=== PATIENT | male | born 1945 | race Caucasian/White ===

== ENCOUNTER → 2018-05-26 05:57 | Outpatient (CLI) | payer OTHER, SELFPAY ==
[2016-09-16 12:46] VITALS: BMI 29.5
--- NOTE | 2018-05-26 06:01 | ECHOD_ITS ---
Reason For Study: DYSPNEA/SOB Procedure This was a 2D Doppler, Color Flow transthoracic echocardiogram. The exam was of adequate technical quality. Exam performed in department. Left Ventricle Normal LV size. Mild concentric left ventricular hypertrophy. Sigmoid septum. Apical false tendon noted. Left ventricular systolic function is normal. The estimated ejection fraction is 70 %. No regional wall motion abnormalities noted. Right Ventricle Normal RV size. Normal systolic function. Atria Normal left atrium. Normal right atrium. No doppler evidence for ASD. Mitral Valve There is no mitral annular calcification. Normal mitral valve. Moderate (2+) eccentric mitral valve insufficiency. Tricuspid Valve Normal tricuspid valve. Mild tricuspid valve insufficiency. Right ventricular systolic pressure estimated to be 40 mmHg. Aortic Valve Trisinus/trileaflet aortic valve. Normal aortic valve. Trivial aortic valve insufficiency. Pulmonic Valve The pulmonic valve is not well visualized. Great Vessels Mildly dilated ascending aorta. Pericardium/Pleural No pericardial effusion. MMode/2D Measurements & Calculations LVIDd: 4.1 cm IVSd: 1.4 cm Ao root diam: 4.1 cm LVIDs: 2.4 cm LVPWd: 1.3 cm LA dimension: 3.7 cm RVDd: 3.0 cm FS: 40.1 % LAV(MOD-bp): 56.4 ml LVAd ap4: 37.8 cm2 SV(MOD-sp4): 84.6 ml LAV(MOD-bp) Indexed: 27.7 ml/m2 EDV(MOD-sp4): 127.0 ml LAV(MOD-sp2): 67.1 ml EDV(sp4-el): 131.8 ml LAV(MOD-sp4): 47.0 ml LVAs ap4: 18.5 cm2 ESV(MOD-sp4): 42.4 ml ESV(sp4-el): 41.6 ml EF(MOD-sp4): 66.6 % EF(sp4-el): 68.4 % SV(sp4-el): 90.2 ml LA A4 area: 17.7 cm2 RA A4 area: 16.3 cm2 Time Measurements MV dec time: 0.19 sec Doppler Measurements & Calculations MV E max cosme: 126.1 cm/sec Lat Peak E' Cosme: 10.2 cm/sec Med Peak E' Cosme: 6.9 cm/sec MV A max cosme: 90.4 cm/sec E/E' lat: 12.3 E/E' med: 18.2 MV E/A: 1.4 MV V2 max: 128.8 cm/sec Ao V2 max: 122.9 cm/sec LV V1 max: 90.5 cm/sec MV max P.6 mmHg Ao max P.1 mmHg LV V1 max P.3 mmHg MV V2 mean: 73.5 cm/sec MV mean P.5 mmHg MV V2 VTI: 36.0 cm PA V2 max: 95.1 cm/sec TR max cosme: 302.8 cm/sec TR max P.8 mmHg Interpretation Summary Left ventricular systolic function is normal. The estimated ejection fraction is 70 %. Mild concentric left ventricular hypertrophy. Sigmoid septum. Apical false tendon noted. Moderate (2+) eccentric mitral valve insufficiency. Mild tricuspid valve insufficiency. Trivial aortic valve insufficiency. Mildly dilated ascending aorta. Right ventricular systolic pressure estimated to be 40 mmHg. Transmitral diastolic flow velocities suggest diastolic dysfunction (pseudonormal pattern). Ordering Physician: Linda Austin/Henok Hill Referring Physician: CECILIA PENA Performed By: Tri Sheehan RDCS
--- NOTE | 2018-05-26 08:52 | STRESSREP ---
Stress Test Report Date: 05/26/2018 Procedure: Exercise tolerance test/imaging study Indications: Shortness of breath/dyspnea; CAD; non-ST segment elevation MT; PCI Consent: Per the patient Procedure: The patient exercised on a Jonah protocol for 7 minutes completing Stage II and 1 minute of Stage III achieving a peak heart rate of 133 bpm (89 % predicted maximal heart rate) with a peak blood pressure 198/100 mmHg and a peak MET capacity of 8 METs. The baseline ECG demonstrated sinus bradycardia. The peak exercise ECG demonstrated no obvious ECG changes. There was a rare PAC during recovery. The functional capacity was considered good. There was no complaint of chest discomfort during exercise or recovery. The examination was discontinued secondary to dyspnea. Impression: 1. Technically adequate (percent predicted maximal heart rate greater than 85%) exercise tolerance test 2. Peak exercise ECG with no obvious ECG changes 3. There was a rare PAC during recovery. 4. Nuclear images pending Myocardial perfusion imaging study: Technique: The patient was injected with 11.4 mCi of technetium 99m Cardiolite and subsequently rest SPECT Cardiolite nuclear imaging was obtained in the horizontal long, vertical long, and short axis views. The patient exercised on a Jonah protocol for 7 minutes completing Stage II and 1 minute of Stage III achieving a peak heart rate of 133 bpm (89 % predicted maximal heart rate) with a peak blood pressure 198/100 mmHg and a peak MET capacity of 8 METs. The patient was injected with 84.1 mCi of technetium 99m Cardiolite and subsequently stress SPECT Cardiolite nuclear imaging was obtained in the horizontal long, vertical long, and short axis views. A gated Cardiolite study at peak stress was obtained. Interpretation: Rest and stress SPECT Cardiolite nuclear imaging status post realignment, normalization, and attenuation correction, demonstrates the appearance of relative uniform tracer uptake and myocardial perfusion appearing within normal limits. There is end systolic thickening and brightening. The gated Cardiolite study demonstrates myocardial thickening and inward wall motion. The reported LVEF is 70 %. Impression: 1. Rest and stress SPECT Cardiolite nuclear imaging demonstrate relative uniform tracer uptake and myocardial perfusion appearing within normal limits. 2. The gated Cardiolite study reports an LVEF of 70 %. This note was generated with [employer] software. It may contain incorrect words, spelling, and punctuation that were not noted in checking the note before signing.
--- NOTE | 2018-05-26 08:55 | STRESSREP_ITS ---
Stress Test Report Date: 05/26/2018 Procedure: Exercise tolerance test/imaging study Indications: Shortness of breath/dyspnea; CAD; non-ST segment elevation NM; PCI Consent: Per the patient Procedure: The patient exercised on a Jonah protocol for 7 minutes completing Stage II and 1 minute of Stage III achieving a peak heart rate of 133 bpm (89 % predicted maximal heart rate) with a peak blood pressure 198/100 mmHg and a peak MET capacity of 8 METs. The baseline ECG demonstrated sinus bradycardia. The peak exercise ECG demonstrated no obvious ECG changes. There was a rare PAC during recovery. The functional capacity was considered good. There was no complaint of chest discomfort during exercise or recovery. The examination was discontinued secondary to dyspnea. Impression: 1. Technically adequate (percent predicted maximal heart rate greater than 85% ) exercise tolerance test 2. Peak exercise ECG with no obvious ECG changes 3. There was a rare PAC during recovery. 4. Nuclear images pending Myocardial perfusion imaging study: Technique: The patient was injected with 11.4 mCi of technetium 99m Cardiolite and subsequently rest SPECT Cardiolite nuclear imaging was obtained in the horizontal long, vertical long, and short axis views. The patient exercised on a Jonah protocol for 7 minutes completing Stage II and 1 minute of Stage III achieving a peak heart rate of 133 bpm (89 % predicted maximal heart rate) with a peak blood pressure 198/100 mmHg and a peak MET capacity of 8 METs. The patient was injected with 84.1 mCi of technetium 99m Cardiolite and subsequently stress SPECT Cardiolite nuclear imaging was obtained in the horizontal long, vertical long, and short axis views. A gated Cardiolite study at peak stress was obtained. Interpretation: Rest and stress SPECT Cardiolite nuclear imaging status post realignment, normalization, and attenuation correction, demonstrates the appearance of relative uniform tracer uptake and myocardial perfusion appearing within normal limits. There is end systolic thickening and brightening. The gated Cardiolite study demonstrates myocardial thickening and inward wall motion. The reported LVEF is 70 %. Impression: 1. Rest and stress SPECT Cardiolite nuclear imaging demonstrate relative uniform tracer uptake and myocardial perfusion appearing within normal limits. 2. The gated Cardiolite study reports an LVEF of 70 %. This note was generated with [employer] software. It may contain incorrect words, spelling, and punctuation that were not noted in checking the note before signing.
== END ==
PROVIDERS: Family Provider Family Medicine; PCP Family Medicine; Visit Provider Physician Assistant Medical
DX: I25.10 Atherosclerotic heart disease of native coronary artery without angina pectoris (principal); R06.00 Dyspnea, unspecified
CPT/HCPCS: 78452; 93017; 93306; A9500; A4216

== ENCOUNTER → 2018-06-02 13:06 | Outpatient (CLI) | payer OTHER, SELFPAY ==
[2016-09-16 12:46] VITALS: BMI 29.5
--- NOTE | 2018-06-02 13:08 | CT_ITS ---
STUDY: CT CHEST WITHOUT CONTRAST REASON FOR EXAM: Male, 72 years old. Thoracic aortic aneurysm. No RADIATION DOSAGE (If Supplied By Facility): CTDIvol = ( 13.83 ) mGy, DLP = ( 660.91 ) mGycm TECHNIQUE: Transaxial imaging was performed without the administration of intravenous contrast material. Individualized dose optimization techniques were used for this CT. COMPARISON: None. FINDINGS: There is hyperinflation of the lungs consistent with chronic obstructive lung disease (COPD). No infiltrates or effusions. There is no demonstrated pleural abnormality. Normal heart and pericardium. There are calcifications of the coronary arteries. Normal mediastinum. Normal hilar regions. Normal unenhanced pulmonary arteries. There is atherosclerotic tortuosity of the aortic arch and descending thoracic aorta. There is ectasia of the SMA aorta measuring as much as 4.2 cm in diameter. No evidence for dissection. There are multi-level degenerative changes of the thoracic spine. Limited views the upper abdomen show no gross acute abnormality. There is a 3.5 cm complex cyst of the upper pole of the right kidney which has been previously investigated and is grossly unchanged. CT/Chest WITH Contrast IMPRESSION: There are findings consistent with COPD. Ectasia of the ascending aorta with greatest cross-sectional dimension of 4.2 cm. Note that no prior comparison studies are provided. There is no evidence of acute chest disease. Electronically Signed: Jarrod Hernandez MD at 22:23 EDT , Service support ,
--- NOTE | 2018-06-02 13:33 | CT_ITS ---
STUDY: CT ABDOMEN AND PELVIS WITHOUT CONTRAST REASON FOR EXAM: Male, 72 years old. Follow-up right renal cyst. RADIATION DOSAGE (If Supplied By Facility): CTDIvol = ( 13.83 ) mGy, DLP = ( 660.91 ) mGycm TECHNIQUE: Transaxial images were obtained from the dome of the diaphragm to the symphysis pubis without oral contrast, and without intravenous contrast. Sagittal and coronal images were reconstructed. Individualized dose optimization techniques were used for this CT. COMPARISON: 08/09/2016. FINDINGS: See separate report for CT of the chest. Complex mixed density cyst of the upper pole of the left kidney is seen, but very limited evaluation because contrast was not given. Therefore although it can be shown to measure approximately same size as seen previously at approximately 3.3 cm, evaluation must be considered markedly inadequate without IV contrast. No other changes of the kidneys, which show extreme amount of parapelvic cysts, right worse than left but stable. The parapelvic cysts make it very difficult to exclude hydronephrosis although none is definitely seen. No definite stones on the right. On the left, there is a 2 mm upper pole stone. Normal liver. The gallbladder is contracted. Normal spleen. Normal pancreas. Normal bilateral adrenal glands. Evaluation of the GI tract is limited by absence of oral contrast. Cannot exclude stomach wall thickening. No dilated loops of bowel or evidence for obstruction. Cannot exclude segmental thickening of the garcia of the small or large bowel. Cannot exclude enteritis or colitis. Moderate diffuse fecal retention. Appendix within normal limits. Tortuous aorta with small amounts of plaque. No evidence for aneurysm. Normal inferior vena cava. Normal retroperitoneum. Normal urinary bladder. There is enlargement of the prostate gland. Surgical changes of previous bilateral inguinal hernia repairs. Currently no definite hernia is seen. There are diffuse degenerative changes of the visualized lumbar spine. CT/Abdomen/Pelvis without Cont IMPRESSION: Although a complex cyst of the upper pole of the right kidney is grossly unchanged in size, evaluation for renal masses in general is extremely limited with IV contrast was not given, and very little other comment can be made. Tiny nonobstructing left renal stone. Prominent bilateral parapelvic cysts. Electronically Signed: Jarrod Hernandez MD at 22:29 EDT , Service support ,
[2018-06-02 15:16] LABS: CREATININE FINGERSTICK 0.8 mg/dL (0.70-1.30); EGFR FINGERSTICK > 60.0000 mL/min (>60)
== END ==
PROVIDERS: Family Provider Family Medicine; PCP Family Medicine; Visit Provider Internal Medicine Cardiovascular Disease
DX: I77.810 Thoracic aortic ectasia (principal); Q61.01 Congenital single renal cyst
CPT/HCPCS: 71260; 74176; Q9967

== ENCOUNTER → 2020-05-23 | Outpatient (CLI) | payer OTHER, SELFPAY ==
[2016-09-16 12:46] VITALS: BMI 29.5
[2019-12-17 10:05] VITALS: BMI 30.4
--- NOTE | 2020-05-23 07:26 | ECHOD_ITS ---
Reason For Study: CAD Procedure This was a 2D Doppler, Color Flow transthoracic echocardiogram. The exam was of adequate technical quality. Exam performed in department. Left Ventricle Normal LV size. Sigmoid septum. Left ventricular systolic function is normal. The estimated ejection fraction is 65 %. Diastolic function is indeterminate. No regional wall motion abnormalities noted. Right Ventricle Normal RV size. Normal systolic function. Atria Normal left atrium. Normal right atrium. No doppler evidence for ASD. Mitral Valve There is no mitral annular calcification. Normal mitral valve. Moderate (2+) eccentric mitral valve insufficiency. Tricuspid Valve Normal tricuspid valve. Trivial tricuspid valve insufficiency. Right ventricular systolic pressure estimated to be 28 mmHg. Aortic Valve Trisinus/trileaflet aortic valve. Mild diffuse aortic valve thickening. Mild focal aortic valve calcification. Aortic sclerosis, no stenosis. Trivial aortic valve insufficiency. Pulmonic Valve The pulmonic valve is not well visualized. Trivial pulmonic valve insufficiency. Great Vessels Moderately dilated aortic root. Pericardium/Pleural No pericardial effusion. MMode/2D Measurements & Calculations LVIDd: 5.2 cm IVSd: 0.98 cm LVOT diam: 2.0 cm LVIDs: 3.5 cm LVPWd: 1.1 cm LVOT area: 3.1 cm2 RVDd: 3.6 cm FS: 33.4 % Ao root diam: 4.6 cm LAV(MOD-bp): 46.3 ml LA A4 area: 14.1 cm2 LAV(MOD-bp) Indexed: 22.7 ml/m2 LAV(MOD-sp2): 51.0 ml LAV(MOD-sp4): 36.1 ml LA dimension(2D): 4.3 cm RA A4 area: 10.3 cm2 Time Measurements MV dec time: 0.22 sec Doppler Measurements & Calculations MV E max cosme: 56.7 cm/sec Lat Peak E' Cosme: 5.5 cm/sec Med Peak E' Cosme: 3.4 cm/sec MV A max cosme: 86.4 cm/sec E/E' lat: 10.3 E/E' med: 16.6 MV E/A: 0.66 MV V2 max: 98.6 cm/sec Ao V2 max: 128.6 cm/sec AI max cosme: 388.6 cm/sec MV max P.9 mmHg Ao max P.6 mmHg AI max P.4 mmHg MV V2 mean: 45.8 cm/sec Ao V2 mean: 99.7 cm/sec AI dec slope: 124.7 cm/sec2 MV mean P.1 mmHg Ao mean P.2 mmHg AI P1/2t: 912.9 msec MV V2 VTI: 29.6 cm Ao V2 VTI: 25.3 cm MVA(VTI): 2.1 cm2 ORA(I,D): 2.4 cm2 ORA(V,D): 2.3 cm2 LV V1 max: 95.0 cm/sec SV(LVOT): 61.7 ml PA V2 max: 86.5 cm/sec LV V1 max P.6 mmHg LV V1 mean P.1 mmHg LV V1 mean: 68.5 cm/sec LV V1 VTI: 20.0 cm TR max cosme: 251.1 cm/sec MV P1/2t-pr_phl: 58.3 msec TR max P.2 mmHg Interpretation Summary Left ventricular systolic function is normal. The estimated ejection fraction is 65 %. Sigmoid septum. Moderate (2+) eccentric mitral valve insufficiency. Trivial tricuspid valve insufficiency. Aortic sclerosis, no stenosis. Trivial aortic valve insufficiency. Trivial pulmonic valve insufficiency. Moderately dilated aortic root. Right ventricular systolic pressure estimated to be 28 mmHg. Diastolic function is indeterminate. Ordering Physician: Henok Hill Referring Physician: CECILIA PENA Performed By: Keturah Barrientos, JHON, RVT
--- NOTE | 2020-05-23 07:26 | CT_ITS ---
STUDY: CT CHEST WITH CONTRAST REASON FOR EXAM: Male, 74 years old. ASCENDING AORTA DILATION YEARLY FOLLOW UP RADIATION DOSAGE (If Supplied By Facility): CTDIvol = ( 14.95 ) mGy, DLP = ( 586.25 ) mGycm TECHNIQUE: Transaxial imaging was performed following intravenous administration of IV 100mL Isovue-300. Individualized dose optimization techniques were used for this CT. COMPARISON: 06/02/2018 FINDINGS: The lungs are normal. There is no demonstrated pleural abnormality. Normal heart and pericardium. There are calcifications of the coronary arteries. Normal mediastinum. Normal hilar regions. Normal enhanced pulmonary arteries. Normal aorta arch and descending thoracic aorta. The ascending aorta measures 4.0 cm in diameter which is at the upper limits of normal. Normal osseous structures. No change of hydronephrosis or parapelvic cyst of the right kidney. CT/Chest WITH Contrast IMPRESSION: Normal enhanced CT Chest examination. Electronically Signed: Aiden Beck MD at 8:07 EDT Tel , Service support ,
[2020-05-23 07:46] LABS: EGFR FINGERSTICK > 60.0000 mL/min (>60)
== END | disposition home or self-care (01) ==
LOC: CVS 07:26
PROVIDERS: PCP Family Medicine; Referring Provider Internal Medicine Cardiovascular Disease; Visit Provider Internal Medicine Cardiovascular Disease
DX: I25.10 Atherosclerotic heart disease of native coronary artery without angina pectoris (principal); R06.09 Other forms of dyspnea; I34.0 Nonrheumatic mitral (valve) insufficiency; I77.810 Thoracic aortic ectasia; E78.00 Pure hypercholesterolemia, unspecified; I10 Essential (primary) hypertension; Z95.5 Presence of coronary angioplasty implant and graft
CPT/HCPCS: 71260; 93306; Q9967

== ENCOUNTER 2020-07-06 16:56 | Emergency (ER) | payer OTHER, SELFPAY ==
[2016-09-16 12:46] VITALS: BMI 29.5
[2020-05-26 10:20] VITALS: BMI 30.9
[2020-07-06 16:56] VITALS: BP 177/91; PULSE 67; RESP 18; TEMP 36.1; O2SAT 97; BMI 30.8
--- NOTE | 2020-07-06 17:02 | ED.RN ---
C-COLLAR AND GAUZE DRESSING APPLIED IN TRIAGE.
--- NOTE | 2020-07-06 17:44 | CT_ITS ---
STUDY: CT BRAIN WITHOUT CONTRAST REASON FOR EXAM: Male, 74 years old. FELL BACKWARDS AND HIT HEAD ON TRACTOR Wheel, laceration TO BACK OF Head, pt DENIES LOC -- HX:HTN,CVA,CAD RADIATION DOSAGE (If Supplied By Facility): CTDIvol = ( 44.99 ) mGy, DLP = ( 796.11 ) mGycm TECHNIQUE: Transaxial CT imaging of the brain was performed without administration of intravenous contrast material. Individualized dose optimization techniques were used for this CT. COMPARISON: No relevant priors. FINDINGS: There is mild subcutaneous fullness associated with subcutaneous air overlying the posterior calvarium consistent with recent trauma. Normal calvarium. There is mild cerebral atrophy with widening of the extra-axial spaces and ventricular dilatation. There are areas of decreased attenuation within the white matter tracts of the supratentorial brain, consistent with microvascular disease changes. Normal basal ganglia and thalami. Normal brainstem. There is mild cerebellar atrophy. There are peripheral calcifications of the visualized vertebral and internal carotid arteries. There is no intracranial hemorrhage. There are no findings of an acute ischemic infarction. Normal visualized paranasal sinuses. CT/Brain/Head without Contrast IMPRESSION: Chronic involutional changes of the brain. Small vessel ischemia. Atherosclerosis. Electronically Signed: Zulma Mckeon MD at 18:25 EDT Tel , Service support ,
--- NOTE | 2020-07-06 17:45 | CT_ITS ---
STUDY: CT CERVICAL SPINE WITHOUT CONTRAST REASON FOR EXAM: Male, 74 years old. FELL BACKWARDS AND HIT HEAD ON TRACTOR WHEEL,LACERATION TO BACK OF HEAD,PT DENIES LOC -- HX:HTN,CVA,CAD/acute traumatic neck injury. RADIATION DOSAGE (If Supplied By Facility): CTDIvol = ( 23.30 ) mGy, DLP = ( 426.10 ) mGycm TECHNIQUE: High resolution transaxial imaging was performed without contrast material. Sagittal and coronal images were reconstructed. Individualized dose optimization techniques were used for this CT. COMPARISON: None FINDINGS: Normal craniovertebral junction. Normal C1, C2 and odontoid alignment. Negative for odontoid fracture. There is reversal of the normal cervical lordosis. Negative for acute fracture of the cervical spine. C2-3: Mild degenerative disc narrowing. Bilateral facet arthrosis, right greater than left. Negative for central stenosis or substantial foraminal narrowing. C3-4: Mild disc narrowing. Bilateral facet arthrosis, left greater than right. Negative for central stenosis. Foraminal narrowing on the left. C4-5: Mild disc narrowing and uncovertebral arthrosis. Bilateral facet arthrosis, left greater than right. Foraminal narrowing on the left. Negative for central stenosis. C5-6: Advanced disc narrowing. Uncovertebral arthrosis. Negative for central stenosis. Mild bilateral foraminal narrowing, right greater than left. C6-7: Degenerative disc narrowing and uncovertebral arthrosis. Negative for central stenosis. Mild bilateral foraminal narrowing. C7-T1: Mild degenerative disc and joint changes without central stenosis or foraminal narrowing. Status post left thyroidectomy. Mild bilateral carotid artery calcifications. CT/Spine Cervical without Contras IMPRESSION: Reversal of the usual cervical lordosis with otherwise normal alignment. Negative for acute fracture of the cervical spine. Degenerative disc and joint changes as stated above. Status post left thyroidectomy. Mild bilateral carotid artery calcifications. Electronically Signed: Elizabet Wylie MD at 18:22 EDT , Service support ,
--- NOTE | 2020-07-06 17:48 | ED.DCSUM_ITS ---
- ER Visit Summary Date of Service: 07/06/20 Chief Complaint: Fall History of Present Illness: The patient is a 74 M who presents after a fall that occurred today. Patient slipped as he was getting onto a tractor. Patient fell backwards and hit his head on the tire rim of another tractor. Patient denies any loss of consciousness. Patient admits to some pain in his head, upper back, and upper chest. Patient describes it as dull. Patient states nothing makes it better or worse. Patient denies any paresthesias or weakness. Patient is unsure of his last tetanus. Physical Examination: Vital signs are stable. Patient is afebrile. Patient is in no acute distress. Skin is warm and dry. There is a 3.5 cm full-thickness linear laceration over the occipital part of the scalp. There is no bony crepitance or step-off. There is mild bleeding noted. Cranial nerves II throug h XII are intact. Strength is 5/5 bilateral in the upper and lower extremities. There are no sensory deficits noted. Neck is supple. There is some mild cervical paraspinal tenderness. There is no bony crepitance or step-off. Cervical collar is in place. Heart was regular rate and rhythm. Lungs are clear and equal bilaterally. Abdomen is soft and nontender. Test Results: CT scan of the cervical spine and CT scan of the brain were obtained. There is no acute abnormality. These were interpreted by the radiologist and reviewed by myself. Emergency Department Course and Treatment: The wound was cleaned and irrigated with copious amounts of normal saline. The wound was anesthetized 1% lidocaine with epinephrine locally. The wound was closed with 8 mingo. Patient tolerated procedure well. Bacitracin dressing was applied. Patient was instructed to follow-up with his primary care physician in 5 days for wound rec heck and suture removal. Patient understood and was agreeable with the plan. All questions were answered. Disposition: Discharge home Impression: 1. Scalp laceration 2. Closed head injury This note was generated with [email or web address] dictation software. It may contain incorrect words, spelling, and punctuation that were not noted in review of the chart prio r to signing ED Disposition - Plan for ED Patient: Disposition: Home or Assisted Living Diagnosis: Occipital scalp laceration, Closed head injury Instructions: ED Head Injury Adult, ED Laceration Scalp Sutures or [facility] Referrals: Cydney Lockett MD [Primary Care Provider] - 5 Days for suture removal
[2020-07-06] MEDS: Diphth,Pertuss(Acell),Tet Vac 0.5 ML Vial IM (18:10)
[2020-07-06 19:14] VITALS: BP 158/89; RESP 18; O2SAT 97
== END 2020-07-06 19:16 | disposition home or self-care (01) ==
PROVIDERS: Emergency Provider Emergency Medicine; PCP Family Medicine
DX: S01.01XA Laceration without foreign body of scalp, initial encounter (principal); I10 Essential (primary) hypertension; Z86.73 Personal history of transient ischemic attack (TIA), and cerebral infarction without residual deficits; Z79.899 Other long term (current) drug therapy; W26.8XXA Contact with other sharp object(s), not elsewhere classified, initial encounter; Y93.89 Activity, other specified; Y92.008 Other place in unspecified non-institutional (private) residence as the place of occurrence of the external cause; Y99.8 Other external cause status
CPT/HCPCS: 12002; 70450; 72125; 90471; 90715; 99282

== ENCOUNTER → 2020-07-31 10:12 | Outpatient (CLI) | payer OTHER, SELFPAY ==
[2016-09-16 12:46] VITALS: BMI 29.5
[2020-07-06 16:56] VITALS: BMI 30.8
[2020-07-31 12:22] LABS: PSA,Total - Annual Screen 1.95 ng/mL (0.00-4.00)
== END ==
PROVIDERS: PCP Family Medicine; Visit Provider Urology
DX: Z12.5 Encounter for screening for malignant neoplasm of prostate (principal)
CPT/HCPCS: 36415; 84153; G0103

== ENCOUNTER → 2023-05-26 | Outpatient (CLI) | payer OTHER, MEDICARE, SELFPAY ==
[2022-11-22 09:11] VITALS: BMI 29.5
--- NOTE | 2023-05-26 07:01 | CT_ITS ---
STUDY: CTA CHEST REASON FOR EXAM: Male, 77 years old. Ascending Aortic Aneurysm (known) RADIATION DOSAGE (If Supplied By Facility): CTDIvol = ( 19.63 ) mGy, DLP = ( 453.69 ) mGycm TECHNIQUE: The examination was performed with the intravenous administration of IV 100mL Isovue-370. Post-processing of the angiographic images was performed, with multiplanar reformation and 3D reconstruction. Individualized dose optimization techniques were used for this CT. COMPARISON: Comparison is made with the prior examination dated May 23, 2020. FINDINGS: Normal enhancement of the main pulmonary artery and right and left pulmonary arteries. Normal enhancement of the bilateral peripheral pulmonary arteries. There is no demonstrated pulmonary embolism. There is aneurysmal dilatation of the ascending aorta. The transverse diameter of the ascending aorta measures 51 mm''s. This previously measured 42.6 mm. Atherosclerotic calcific plaques of the descending thoracic aorta with a small amount of mural thrombus. There is no demonstrated aortic dissection. There are calcifications of the coronary arteries. Normal mediastinum. Normal hilar regions. Normal visualized trachea and bronchi. The lungs are well expanded. Normal pulmonary parenchyma. Normal pleura. Normal chest wall structures. There are degenerative changes of thoracic spine. Stable 2.8 cm x 2.7 cm cyst in the upper pole of the right kidney. Fatty infiltration of the liver. CT/CTA Chest W/WO Contrast IMPRESSION: The ascending thoracic aorta has a transverse dimension of 51 mm at this time. Electronically Signed: Severo Beltran MD at 11:18 EDT ,
[2023-05-26 07:27] LABS: CREATININE FINGERSTICK 1.2 mg/dL (0.70-1.30); EGFR FINGERSTICK > 60.0000 mL/min (>60)
== END | disposition home or self-care (01) ==
LOC: CT 07:01
PROVIDERS: PCP Family Medicine; Referring Provider Physician Assistant Medical; Visit Provider Physician Assistant Medical
DX: I77.810 Thoracic aortic ectasia (principal); I25.10 Atherosclerotic heart disease of native coronary artery without angina pectoris
CPT/HCPCS: 71275; Q9967

== ENCOUNTER → 2023-05-30 | Outpatient (CLI) | payer OTHER, MEDICARE, SELFPAY ==
[2022-11-22 09:11] VITALS: BMI 29.5
--- NOTE | 2023-05-30 06:21 | ECHOD_ITS ---
Reason For Study: CAD, Asc Ao aneurysm Procedure This was a 2D Doppler, Color Flow transthoracic echocardiogram. Exam performed in department. Left Ventricle Normal LV size. The estimated ejection fraction is 65 %. Left ventricular systolic function is normal. No regional wall motion abnormalities noted. Right Ventricle Normal RV size. Normal systolic function. Atria Normal left atrium. Normal right atrium. Mitral Valve Normal mitral valve. Mild-Moderate (1-2+) anteriorly directed mitral valve insufficiency. Tricuspid Valve Normal tricuspid valve. Mild (1+) tricuspid valve insufficiency. Pulmonary artery systolic pressure is 30 mmHg. Aortic Valve Trisinus/trileaflet aortic valve. Pulmonic Valve Normal pulmonic valve. Great Vessels Moderately dilated aortic root. The pulmonary artery is normal size. Normal inferior vena cava. Pericardium/Pleural No pericardial effusion. MMode/2D Measurements & Calculations LVIDd: 4.2 cm IVSd: 1.7 cm Ao root diam: 4.6 cm LVIDs: 1.9 cm LVPWd: 1.4 cm RVDd: 3.2 cm FS: 54.3 % LAV(MOD-bp): 57.1 ml LVAd ap4: 36.1 cm2 LVAd ap2: 34.2 cm2 LAV(MOD-bp) Indexed: 27.3 ml/m2 LVLd ap4: 9.6 cm LVLd ap2: 9.2 cm LAV(MOD-sp2): 68.3 ml EDV(MOD-sp4): 112.3 ml EDV(MOD-sp2): 108.1 ml LAV(MOD-sp4): 40.0 ml EDV(sp4-el): 115.1 ml EDV(sp2-el): 107.8 ml LVAs ap4: 18.0 cm2 LVAs ap2: 16.5 cm2 LVLs ap4: 8.3 cm LVLs ap2: 8.3 cm ESV(MOD-sp4): 33.6 ml ESV(MOD-sp2): 30.6 ml ESV(sp4-el): 33.2 ml ESV(sp2-el): 27.9 ml EF(MOD-sp4): 70.0 % EF(MOD-sp2): 71.7 % EF(sp4-el): 71.2 % SV(MOD-sp4): 78.7 ml SV(MOD-sp2): 77.5 ml SV(sp4-el): 81.9 ml LA dimension(2D): 3.8 cm LA A4 area: 15.5 cm2 RA A4 area: 11.8 cm2 TAPSE: 1.9 cm Time Measurements MV dec time: 0.28 sec Doppler Measurements & Calculations MV E max cosme: 76.9 cm/sec Lat Peak E' Cosme: 6.2 cm/sec Med Peak E' Cosme: 4.7 cm/sec MV A max cosme: 88.7 cm/sec E/E' lat: 12.5 E/E' med: 16.4 MV E/A: 0.87 MV dec slope: 279.4 cm/sec2 Ao V2 max: 130.0 cm/sec AI max cosme: 406.9 cm/sec Ao max P.8 mmHg AI max P.2 mmHg Ao V2 mean: 93.3 cm/sec AI dec slope: 187.7 cm/sec2 Ao mean P.8 mmHg AI P1/2t: 635.0 msec Ao V2 VTI: 25.6 cm AV (velocity ratio): 0.81 LV V1 max: 90.7 cm/sec PA V2 max: 84.8 cm/sec TR max cosme: 258.9 cm/sec LV V1 max P.3 mmHg TR max P.8 mmHg LV V1 mean P.0 mmHg LV V1 mean: 66.1 cm/sec LV V1 VTI: 20.6 cm ECHO/Echo Complete Interpretation Summary Normal LV size. The estimated ejection fraction is 65 %. Left ventricular systolic function is normal. Moderately dilated aortic root. Mild-Moderate (1-2+) anteriorly directed mitral valve insufficiency. Ordering Physician: Linda Austin/Michelet Mary Referring Physician: sima Lockett Performed By: Kat Deleon RDCS
--- NOTE | 2023-05-30 15:58 | STRESSREP ---
Stress Test Report Pharmacologic myocardial perfusion stress test. 77-year-old man with a history of coronary artery disease status post AAA repair Resting EKG demonstrates sinus bradycardia with a rate of 56 bpm. Resting blood pressure is 158/100 mmHg. 0.4 mg of regadenoson was infused per usual protocol followed by rapid intravenous saline flush injection. Continuous EKG monitoring was performed. The maximum heart rate was 86 bpm which was 60% of max impacted heart rate the maximum workload was 1 metabolic equivalent. At rest there were no ST or T wave changes noted to suggest ischemia and at peak infusion nonspecific ST changes were noted which did not meet the criteria for ischemia. No clinical angina is noted. The final blood pressure was 162/88 mmHg. Myocardial perfusion protocol. 15 mCi of technetium 99m sestamibi was injected at rest. 0.4 mg of regadenoson was infused per usual protocol. At peak infusion 45 mCi of technetium 99m sestamibi was injected stress images were obtained stress and rest images were reconstructed and compared in the short axis vertical long and horizontal long axis. Gated images were also obtained. Perfusion SPECT analysis: Review of the stress images demonstrate normal uptake of tracer noted in all areas of the myocardium. The resting images similar demonstrated normal uptake of tracer noted in all areas of the myocardium. No areas of reversibility are noted to suggest ischemia and no previous infarct is noted. Gated SPECT analysis: The gated ejection fraction is 66%. Conclusion: Normal pharmacologic myocardial perfusion stress test. Preserved ejection fraction.
== END | disposition home or self-care (01) ==
PROVIDERS: PCP Family Medicine; Referring Provider Physician Assistant Medical; Visit Provider Physician Assistant Medical
DX: I25.10 Atherosclerotic heart disease of native coronary artery without angina pectoris (principal); I77.810 Thoracic aortic ectasia; I34.0 Nonrheumatic mitral (valve) insufficiency; Z95.5 Presence of coronary angioplasty implant and graft
CPT/HCPCS: 78452; 93017; 93306; A9500; A4216; J2785

== ENCOUNTER 2024-01-14 16:45 | Emergency (ER) | payer MEDICARE, SELFPAY ==
[2022-11-22 09:11] VITALS: BMI 29.5
[2024-01-14] VITALS (9 sets, daily range): BP systolic 157–182; BP diastolic 80–119; PULSE 57–73; RESP 15–24; TEMP 36.2–36.3; O2SAT 92–95; BMI 32.8
--- NOTE | 2024-01-14 17:07 | ED.VIS.CHEST ---
HPI History of Present Illness Chief Complaint: Chest Pain Informant: patient Narrative Narrative: Presents here with daughter intermittent right scapular pain and right chest pain for last 2 days. 2 days last 10 hours been intermittent couple times a day since then. Children at the house today they thought he should get checked out. History of coronary stent x 2 years ago. Current on aspirin. On statin. Denies recent travel or surgeries. No history of PE or DVT. Denies any recent cough. Denies tobacco history. Reports dyspnea for years. No leg swelling or cramping. Prior Similar Symptoms: No CVD Risk Factors: Positive for Hypertension and Hypercholesterolemia [facility] Medical History (Updated 01/14/24 @ 20:[address] Angel Sarah, DO) Ascending aortic aneurysm Atherosclerotic heart disease of [place] coronary artery without angina pectoris Chest pain Coronary artery disease CVA (cerebral vascular accident) Essential hypertension GERD (gastroesophageal reflux disease) Hyperlipidemia Mitral valve insufficiency Nephrolithiasis NSTEMI (non-ST elevated myocardial infarction) Peripheral vascular disease Status post insertion of drug-eluting stent into left anterior descending (LAD) artery (~10/11/16) Thyroid disorder Unstable angina pectoris Home Medications allopurinol 100 mg tablet 100 mg PO DAILY 07/02/16 [History Last Taken 09/20/16] atorvastatin 80 mg tablet 80 mg PO QHS 07/02/16 [History Last Taken 09/19/16] isosorbide mononitrate 30 mg tablet,extended release 24 hr 30 mg PO DAILY #30 tabs 09/17/16 [Rx Last Taken 10/11/16 30] metoprolol succinate 50 mg tablet,extended release 24 hr 50 mg PO QDAY 10/09/17 [History Last Taken Unknown] multivitamin 1 tab PO QDAY 10/10/17 [History Last Taken Unknown] vitamin E 200 unit capsule 1,000 unit PO QDAY 10/10/17 [History Last Taken Unknown] lisinopril 10 mg tablet 10 mg PO DAILY 06/14/19 [History Last Taken Unknown] omeprazole 20 mg capsule,delayed release 20 mg PO DAILY 12/17/19 [History Last Taken Unknown] escitalopram oxalate 5 mg tablet mg PO 05/08/23 [History Last Taken Unknown] Allergy/AdvReac Type Severity Reaction Status Date / Time gabapentin AdvReac Severe bleeding; Verified 05/08/23 08:29 epistaxis Family History Mother CVA (cerebral vascular accident) Surgical History H/O partial thyroidectomy History of hernia repair Status post insertion of drug eluting coronary artery stent (~10/11/16) Social History Smoking Status: Never smoker alcohol intake: never substance use type: does not use ROS ROS ED Constitutional Constitutional ED: Denies chills, fever(s) or sweats Eyes Eyes: Denies change in vision ENT ENT ED: Denies dysphagia or sore throat Cardiovascular Cardiovascular: Reports chest pain; Denies leg edema, palpitations or racing heartbeat Respiratory/Chest Respiratory/Chest: Reports dyspnea; Denies cough or dyspnea on exertion Gastrointestinal Gastrointestinal: Denies abdominal pain, diarrhea, nausea or vomiting Genitourinary Genitourinary ED: Denies dysuria, hematuria or urinary frequency Musculoskeletal Musculoskeletal: Denies back pain, extremity pain or neck pain Integumentary Denies rash or wounds Neurologic Neurologic: Denies headache(s), paresthesias or weakness EXAM Physical Exam Const Vital Signs: 01/14/24 16:46 01/14/24 17:46 01/14/24 18:00 Temperature 97.2 F L Temperature Source Temporal Pulse Rate 71 64 61 Respiratory Rate 19 H 15 21 H Blood Pressure 166/103 H 182/100 H Blood Pressure Mean 124 127 Pulse Ox 93 93 95 Oxygen Delivery Method Room Air Room Air 01/14/24 19:00 01/14/24 19:55 01/14/24 20:00 Temperature Temperature Source Pulse Rate 67 66 57 L Respiratory Rate 19 H 24 H 20 H Blood Pressure 157/119 H 163/99 H Blood Pressure Mean 131 117 Pulse Ox 95 95 Oxygen Delivery Method 01/14/24 20:15 01/14/24 21:29 Temperature 97.4 F L Temperature Source Pulse Rate 62 73 Respiratory Rate 23 H 18 Blood Pressure 172/80 H Blood Pressure Mean 110 Pulse Ox 93 94 Oxygen Delivery Method Positive well nourished and well developed General Appearance ED: well developed and NAD HEENT Reports moist mucous membranes normocephalic and atraumatic Eyes PERRL, EOMs intact bilaterally and conjunctivae normal General Eye ED: Yes normal appearance of both eyes Neck no lymphadenopathy and supple General: Negative for tenderness Chest Wall Chest: Negative for tenderness Resp normal respiratory effort and normal air movement Resp Narrative: Symmetric breath sounds Effort and Inspection: symmetric chest movement; Negative for respiratory distress Cardio regular rate, regular rhythm and no murmurs Peripheral Pulses: pulses 2+ throughout GI normal to inspection, nondistended, normoactive bowel sounds and non-tender Palpation: Negative for guarding or rebound tenderness present Back/Spine no CVA tenderness and no thoracic nor lumbar tenderness Extremity normal to inspection General Extremety ED: Negative for edema or tenderness General Extremity: Negative for edema Neuro oriented x3 and no sensory deficits noted Sensorium / Orientation: awake and alert Skin no rashes or lesions noted and no wounds MDM MDM MDM Narrative Medical decision making narrative: Interventions / MDM: Differential diagnosis: Atypical chest pains. Diagnosis considered but do not suspect: ACS however EKG no ischemic changes troponin negative. Pulm embolism however D-dimer negative adjusted for age. Pneumothorax however x-ray negative. My EKG interpretation: Sinus rate of 68, no ST changes or T wave changes. QTc 416. Imaging independently reviewed and interpreted by myself: 2 view chest x-ray: No acute process. External documents reviewed: N/A Test considered but not ordered:N/A ED course: Patient intermittent pains currently asymptomatic. EKG no ischemic findings. Cardiac workup initiated D-dimer with reported dyspnea with exertion for months. No PE risk factors. Cardiac workup negative D-dimer negative chest for age. He is ambulated pulse ox was stable. Outpatient follow-up with return precautions. All questions were answered. Re-evaluation: stable discussed with Patient/family/significant other: Patient daughter Case discussed with consulting clinician: N/A This note was generated with [employer] dictation software. It may contain incorrect words, spelling, and punctuation that were not noted in checking the note before signing. Lab Data Attestation: I reviewed the patient's lab results. Labs: Laboratory Results - last 24 hr 01/14/24 17:10 WBC 8.4 RBC 4.48 L Hgb 13.8 Hct 42.8 MCV 95.5 H MCH 30.8 MCHC 32.2 RDW Std Deviation 48.0 H RDW Coeff of Camilo 13.6 Plt Count 195 MPV 12.0 Immature Gran % (Auto) 0.100 Neut % (Auto) 60.9 Lymph % (Auto) 25.5 [place] % (Auto) 11.5 H Eos % (Auto) 1.2 Baso % (Auto) 0.8 Absolute Neuts (auto) 5.1 Absolute Lymphs (auto) 2.15 Nucleated RBC % 0 D-Dimer Quant (PE/DVT) 0.70 H* Sodium 138 Potassium 4.0 Chloride 107 Carbon Dioxide 27.0 Anion Gap 4 L BUN 24 H Creatinine 1.68 H Estim Creat Clear Calc 41.14 Est GFR (MDRD) Af Amer 51 L Est GFR (MDRD) Non-Af 42 L BUN/Creatinine Ratio 14.3 Glucose 114 H Calcium 8.7 Troponin I High Sens 13 Radiography Diagnostic Testing: Clinical Impression(s) from Imaging Studies Chest X-Ray 01/14/24 18:28 IMPRESSION: Degenerative changes, as described above. No demonstrated acute cardiopulmonary process. Electronically Signed: Karthik Clark MD at 18:50 EDT Reading Location ID and State: [address] [place] [address] , Service support , Discharge Plan Triage Chief Complaint: Chest Pain ED Provider: Angel Sarah Dx/Rx/DC Orders Clinical Impression: Dyspnea, Chest pain Instructions: ED Chest Pain, Uncertain Cause, ED Dyspnea Prescriptions: No Action multivitamin tablet 1 tab PO QDAY vitamin E 200 unit capsule 1,000 unit PO QDAY metoprolol succinate 50 mg tablet extended release 24 hr 50 mg PO QDAY lisinopril 10 mg tablet 10 mg PO DAILY omeprazole 20 mg capsule,delayed release(DR/EC) 20 mg PO DAILY escitalopram oxalate 5 mg tablet PO Patient Comments: take 1 tablet by mouth once daily atorvastatin 80 MG tablet 80 mg PO QHS Patient Comments: CHOLESTEROL allopurinol 100 MG tablet 100 mg PO DAILY Patient Comments: KIDNEY STONES isosorbide mononitrate 30 MG tablet 30 mg PO DAILY Qty: 30 0RF Primary Care Provider: Cydney Lockett Referrals: Cydney Lockett MD [Primary Care Provider] - 3-5 Days Activity Restrictions/Additional Instructions: Your cardiac workup negative. Your D-dimer negative for age. Chest x-ray negative. Monitor symptoms from your doctor. If symptoms recur and worsens, return to the ED for reevaluation. Disposition Disposition: Home, Self Care Discharge Date/Time: 01/14/24 21:30
[2024-01-14 17:40] LABS: Anion Gap 4 (5-15); BUN 24 mg/dL (7-18); BUN/Creat Ratio 14.3 RATIO (10-20); Calcium,Total 8.7 mg/dL (8.5-10.1); Chloride 107 mmol/L (98-107); Creatinine, Serum 1.68 mg/dL (0.70-1.30); EST Glomerular Filtration Rate 42 mL/min (>60); Est Glom Filt Rate - Afr Amer 51 mL/min (>60); Estimated Creatinine Clearance 41.14 ml/min; Glucose 114 mg/dL (74-106); Sodium Level 138 mmol/L (136-145); Troponin-I HS 13 pg/mL (3.0-78.0)
--- NOTE | 2024-01-14 18:28 | RAD_ITS ---
STUDY: X-RAY CHEST REASON FOR EXAM: Male, 78 years old. Chest pain TECHNIQUE: PA and lateral views of the chest. COMPARISON: None. FINDINGS: The lungs are clear and expanded. There is no demonstrated pleural abnormality. Normal size heart. Normal mediastinum and matthew. Normal visualized pulmonary arteries. There is atherosclerotic calcification of the aortic arch with tortuosity. There is demineralization of the osseous structures. Normal visualized ribs, clavicles, and shoulders. There is no demonstrated abnormality of the visualized soft tissue structures of the upper abdomen. RAD/Chest PA and Lateral IMPRESSION: Degenerative changes, as described above. No demonstrated acute cardiopulmonary process. Electronically Signed: Karthik Clark MD at 18:50 EDT ,
[2024-01-14 18:32] LABS: Absolute Lymphocyte Count 2.15 X10^3/uL (0.83-4.51); Absolute Neutrophil Count 5.1 X10^3/uL (2.0-7.7); Basophil# 0.07 X10^3/uL; Basophil% 0.8 % (0-1); Eosinophils% 1.2 % (0-5); Hematocrit 42.8 % (40-54); Hemoglobin 13.8 g/dL (13.0-16.5); Lymphocyte # 2.15 X10^3/ul (0.83-4.51); Lymphocyte % 25.5 % (19-41); Mean Corp Hgb Conc 32.2 g/dL (32-36); Mean Corpuscular Hgb 30.8 pg (27.0-32.0); Mean Corpuscular Volume 95.5 fL (80-94); Monocyte# 0.97 X10^3/uL; Monocyte% 11.5 % (0-10); NRBC Flagged by Analyzer 0 % (0-5); Neutrophil # 5.13 X10^3/uL (2.7-7.7); Neutrophil % 60.9 % (47-70); Platelet Count 195 K/mm3 (150-450); RBC Distribution Width CV 13.6 % (11.6-14.6); Red Blood Count 4.48 M/mm3 (4.6-6.2); White Blood Count 8.4 K/mm3 (4.4-11.0)
[2024-01-14] MEDS: 0.9% Normal Saline (1000mL) 1,000 ML 999 ML IV (18:39)
== END 2024-01-14 21:30 | disposition home or self-care (01) ==
PROVIDERS: Emergency Provider Emergency Medicine; PCP Family Medicine; Visit Provider Emergency Medicine
DX: R07.9 Chest pain, unspecified (principal); I10 Essential (primary) hypertension; E78.00 Pure hypercholesterolemia, unspecified; Z95.5 Presence of coronary angioplasty implant and graft; Z79.82 Long term (current) use of aspirin; I25.10 Atherosclerotic heart disease of native coronary artery without angina pectoris; K21.9 Gastro-esophageal reflux disease without esophagitis; R06.00 Dyspnea, unspecified
CPT/HCPCS: 71046; 80048; 84484; 85025; 85379; 93005; 96360; 96361; 99284; J7030; A4216

== ENCOUNTER → 2025-07-27 | Outpatient (CLI) | payer MEDICARE, SELFPAY ==
[2022-11-22 09:11] VITALS: BMI 29.5
[2025-07-27 16:30] LABS: Pro- Brain NATRIURETIC PEPTIDE 50 pg/mL (<=1800)
== END | disposition home or self-care (01) ==
PROVIDERS: PCP Family Medicine; Referring Provider Nurse Practitioner Family; Visit Provider Nurse Practitioner Family
DX: R06.00 Dyspnea, unspecified (principal); I77.810 Thoracic aortic ectasia; I10 Essential (primary) hypertension; I34.0 Nonrheumatic mitral (valve) insufficiency
CPT/HCPCS: 36415; 83880